=== PATIENT | male | born 1960 | race African-American/Black ===

== ENCOUNTER 2024-03-18 10:50 | Outpatient (CLI) | payer OTHER, SELFPAY ==
--- NOTE | 2024-03-18 | ECG_ITS ---
Test Date: 2024-03-18 11:38:51 Measurements Intervals [place] Rate: 67 P: 53 GA: 160 QRS: 19 QRSD: 94 T: 77 QT: 381 QTc: 403 Interpretive Statements SINUS RHYTHM LEFT ATRIAL ENLARGEMENT NONSPECIFIC T-WAVE ABNORMALITY BORDERLINE ECG No previous ECG available for comparison Electronically Signed On 03-18-2024 14:43:16 CDT by Mohamud Larios M.D.
[2024-03-20 18:54] LABS: NIL 0.01 IU/mL; Quantiferon TB Plus, 1T NEGATIVE (NEGATIVE); TB2-NIL 0.01 IU/mL
== END 2024-03-18 10:51 | disposition home or self-care (01) ==
LOC: ANHLAB 10:56
PROVIDERS: PCP Nurse Practitioner Family; Visit Provider Nurse Practitioner Family
DX: I49.9 Cardiac arrhythmia, unspecified (principal); R94.31 Abnormal electrocardiogram [ECG] [EKG]
CPT/HCPCS: 36415; 86480; 93005